=== PATIENT | female | born 1985 | race Caucasian/White ===

== ENCOUNTER → 2016-07-10 | Outpatient (CLI) | payer OTHER ==
[~2016-07-10] MED LIST: CHOL400T; CYAN500T PO; PRENTAB26 PO
[2016-07-10 14:53] LABS: URINE APPEARANCE CLEAR (CLEAR); URINE BILIRUBIN NEG (NEG); URINE COLOR YELLOW; URINE NITRITE NEG (NEG); URINE SPECIFIC GRAVITY 1.007 (1.000-1.030); UROBILINOGEN NEG (NEG)
[2016-07-10 15:07] LABS: MANUAL MICROSCOPIC REQUIRED? NO; REVIEW REQ? NO
== END | disposition home or self-care (01) ==
LOC: C.LABSPEC 14:09
PROVIDERS: ATTEND Obstetrics & Gynecology
DX: Z34.81 Encounter for supervision of other normal pregnancy, first trimester (principal)

== ENCOUNTER → 2016-07-17 | Outpatient (CLI) | payer OTHER ==
[2016-07-19 01:17] LABS: CHLAMYDIA TRACH RNA*** NOT DETECTED (NOT DETECTED); GC (NEIS GONORRHOEAE)RNA** NOT DETECTED (NOT DETECTED)
== END | disposition home or self-care (01) ==
LOC: C.LAB1850 09:40
PROVIDERS: ATTEND Obstetrics & Gynecology
DX: Z34.81 Encounter for supervision of other normal pregnancy, first trimester (principal)

== ENCOUNTER → 2016-07-17 | Outpatient (CLI) | payer OTHER | END | disposition home or self-care (01) | LOC: C.PAPS 13:46 | PROVIDERS: ATTEND Obstetrics & Gynecology | DX: Z12.4 Encounter for screening for malignant neoplasm of cervix (principal) ==

== ENCOUNTER → 2016-07-31 | Outpatient (CLI) | payer OTHER ==
[2016-07-31 12:45] LABS: BASO % 0.2 %; BASO ABS # 0.01 K/uL (0-0.2); COMPLETE YES; EOS % 2.3 %; HEMATOCRIT 37.9 % (37-47); LYMPH % 31.6 %; LYMPH ABS # 1.49 K/uL (1.2-3.4); MEAN CORPUSCULAR HEMOGLOBIN 31.3 pg (25-34); NEUT % 61.9 %; PLATELET COUNT 145 K/uL (130-400); RED BLOOD COUNT 4.12 M/uL (4.2-5.4); WHITE BLOOD COUNT 4.72 K/uL (4.8-10.8)
== END | disposition home or self-care (01) ==
LOC: C.LAB1850 10:55
PROVIDERS: ATTEND Obstetrics & Gynecology
DX: Z34.81 Encounter for supervision of other normal pregnancy, first trimester (principal)

== ENCOUNTER → 2016-09-04 | Outpatient (CLI) | payer OTHER ==
[2016-09-04 18:31] LABS: GTGD 50 Grams
== END | disposition home or self-care (01) ==
LOC: C.LAB1850 14:33
PROVIDERS: ATTEND Obstetrics & Gynecology
DX: Z34.82 Encounter for supervision of other normal pregnancy, second trimester (principal)

== ENCOUNTER → 2016-11-27 | Outpatient (CLI) | payer OTHER ==
[2016-11-27 16:40] LABS: HEMATOCRIT 35.7 % (37-47)
[2016-11-27 18:19] LABS: GTGD 50 Grams
[2016-11-27 18:23] LABS: URINE APPEARANCE CLEAR (CLEAR); URINE BILIRUBIN NEG (NEG); URINE COLOR YELLOW; URINE NITRITE NEG (NEG); UROBILINOGEN NEG (NEG)
[2016-11-27 18:25] LABS: MANUAL MICROSCOPIC REQUIRED? NO; REVIEW REQ? YES
== END | disposition home or self-care (01) ==
LOC: C.LAB1850 15:31
PROVIDERS: ATTEND Obstetrics & Gynecology
DX: Z34.82 Encounter for supervision of other normal pregnancy, second trimester (principal)

== ENCOUNTER → 2017-01-15 | Outpatient (CLI) | payer OTHER | END | disposition home or self-care (01) | LOC: C.LABSPEC 17:19 | PROVIDERS: ATTEND Obstetrics & Gynecology | DX: Z34.83 Encounter for supervision of other normal pregnancy, third trimester (principal) ==

== ENCOUNTER 2017-02-07 06:37 | Inpatient (IN) | payer OTHER ==
[~2017-02-07] VITALS: Ht 165.1 cm; Wt 78.6 kg
[2017-02-07] MEDS ORDERED: LACTATED RINGER'S 1000ML 1,000 ML IV SCH (07:13)
[2017-02-07] MEDS ORDERED: LACTATED RINGER'S 1000ML 1,000 ML IV PRN (07:13)
[2017-02-07] MEDS ORDERED: PENICILLIN G POTASSIUM IV 6 MU in DEXTROSE 5% 250ML 250 ML IV ONE (07:30)
[2017-02-07 07:46] LABS: HEMATOCRIT 33.9 % (37-47); MEAN CELL VOLUME 93.9 fL (80-100); MEAN CORPUSCULAR HEMOGLOBIN 34.3 pg (25-34); MEAN CORPUSCULAR HGB CONC 36.6 g/dl (32-36); MEAN PLATELET VOLUME 9.6 fL (7.4-10.4); PLATELET COUNT 117 K/uL (130-400); RED BLOOD COUNT 3.61 M/uL (4.2-5.4)
[2017-02-07 08:38] VITALS: Ht 165.1 cm; Wt 78.6 kg
[2017-02-07] MEDS ORDERED: LACTATED RINGER'S 1000ML 500 ML IV PRN ×2 (10:31→17:11)
[2017-02-07] MEDS ORDERED: OXYTOCIN 30 UNITS/500ML NSS IV PRN ×2 (10:45→18:15)
--- NOTE | 2017-02-07 11:28 | Medical Student: [facility] ---
Med Student History & Physical Date of Service Feb 07, 2017. Chief Complaint LABOR History of Present Illness Source: patient, spouse, clinic records, hospital records Renée Hopkins is a 31 year old Female 39-5 weeks GA, with an SARWAT of 02/09/2017 by LMP presenting for labor. She reports that her water broke around 0400 with clear fluid, and that was confirmed upon arrival to L&D. She reports that her has gone well and is without complications. She received RhoGAM at 28 weeks. She endorses contractions 3 minutes apart. She denies bleeding during the , denies leakage of fluid other than her water breaking. She endorses movement. Blood Type: A negative Rubella: Immune GBS: POSITIVE HBV: negative VDRL/RPR: nonreactive Chlamydia/Gonorrhea: negative 1 hr Glucose: 118 CBC (0733 on 02/07/2017): Hgb 12.4, Hct 33.9 OB History G1: Delivered a viable female 07/29/2015 at 41-3 weeks GA by normal vaginal delivery after induction for being post term. Small subchorionic bleed at 7 weeks. No other complications. HAND WASHER History Denies Hx of STI Menarche at 10 years old LMP 05/05/2016 Denies Hx of abnormal pap smear Past Medical History None Past Surgical History None Family History Mother: Breast Cancer at age 53 () Father: Brain Cancer Renée Hopkins has not received genetic testing Social History Smoking Status: Never Smoker Smokeless Tobacco Use: No Alcohol Use: none Drug Use: none Marital Status: Housing status: lives with significant other Occupational Status: employed Allergies Coded Allergies: No Known Allergies (Unverified , 07/28/15) Home Medications Multivit/Min/Iron/Fol Ac/Pren ( Vitamin), 1 TAB PO DAILY Review of Systems Constitutional: No fever, No chills Eyes: No worsening of vision, No problem reported ENT: No problem reported Respiratory: No cough, No wheezing, No shortness of breath Cardiovascular: No chest pain, No palpitations Abdomen: No pain, No nausea, No vomiting, No GI bleeding Genitourinary - Female: No dysuria, No hematuria Hematologic / Lymphatic: No abnormal bleeding/bruising Physical Exam Vital Signs: BP 105/63, T97.6, P78, R16 General Appearance: WD/WN ENT: hearing grossly normal Respiratory/Chest: lungs clear, normal breath sounds Cardiovascular: regular rate, rhythm, no murmur Abdomen / GI: non tender, soft, + pertinent finding (gravid uterus) Fundal Height: 39 Genitourinary - Female: + pertinent finding (Cer[facility] exam performed by Dr. Tobias on admission: dilation 3cm, effacement 50%, station (-2)) Extremities: no calf tenderness, no pedal edema Monitoring External Monitor: Baseline Heart Rate: 135 Moderate Variability Accelerations present Several rare variable decelerations Tocodynamometer: Contractions every 1.5-3 minutes Laboratory Results 02/07/17 07:33 Test 02/07/17 07:33 Red Blood Count 3.61 M/uL (4.2-5.4) Mean Corpuscular Volume 93.9 fL (80-100) Mean Corpuscular Hemoglobin 34.3 pg (25-34) Mean Corpuscular Hemoglobin Concent 36.6 g/dl (32-36) RDW Standard Deviation 45.2 fL (36.4-46.3) RDW Coefficient of Variation 13.2 % (11.5-14.5) Mean Platelet Volume 9.6 fL (7.4-10.4) Assessment and Plan Assessment: Renée Hopkins is a 31 year old Female 39-5 weeks GA, with an SARWAT of 02/09/2017 by LMP presenting for labor. Predelivery Hgb and Hct are 12.4 and 33.9 respectively. EFM reveals periods of Category I tracings with periods of reassuring Category II tracings. GBS: positive Plan: Monitor mother and fetus with toco and EFM, respectively Only Ice chips and clear liquids PO Pitocin available for augmentation if needed or indicated Administer IV Penicillin G Epidural when indicated Expect
[2017-02-07] MEDS: PENICILLIN G POTASSIUM IV 3 MU in DEXTROSE 5% 100ML 100 ML IV PRN ×2 (11:55→16:15)
[2017-02-07] MEDS ORDERED: BUPIVACAINE 0.25% 30 ML VIAL ONE (15:44)
[2017-02-07] MEDS ORDERED: FENTANYL 2MCG/ML ROPIV 1.25MG/ML 100ML BAG EPI ONE (15:45)
[2017-02-07] MEDS ORDERED: EpHEDrine SULFATE INJ 50 MG/ML AMP ONE (15:45)
[2017-02-07] MEDS ORDERED: FENTANYL CITRATE INJ 50 MCG/1 ML 2 ML VIAL ONE (15:45)
[2017-02-07] MEDS ORDERED: NALOXONE HCL INJ 1 MG in SODIUM CHLORIDE 0.9% 1000ML 1,000 ML IV PRN (17:11)
[2017-02-07] MEDS ORDERED: NALOXONE HCL INJ 0.4 MG/1 ML VIAL/CARP IV PRN (17:15)
[2017-02-07] MEDS ORDERED: ONDANSETRON INJ 2 MG/ML 2 ML VIAL IV PRN (17:15)
[2017-02-07] MEDS ORDERED: EpHEDrine SULFATE INJ 50 MG/ML AMP IV PRN (17:15)
[2017-02-07] MEDS ORDERED: NALBUPHINE HCL INJ 10 MG/ML AMP IV PRN (17:15)
[2017-02-07] MEDS ORDERED: FENTANYL 2MCG/ML ROPIV 1.25MG/ML 100ML BAG EPI PRN (17:15)
[2017-02-07] MEDS ORDERED: DiphenhydrAMINE HCL 50 MG/ML VIAL IV PRN (17:15)
[2017-02-07] MEDS ORDERED: SUPERCREAM 0.870 % 15GM JAR EXT PRN (18:15)
[2017-02-07] MEDS ORDERED: LANOLIN OINT EXT PRN ×2 (18:15)
[2017-02-07] MEDS ORDERED: DIPHTHERIA/TETANUS/PERTUSSIS 0.5 ML SYR/VIAL IM. ONE (18:15)
[2017-02-07] MEDS ORDERED: ACETAMINOPHEN/CODEINE 300/30MG TAB PO PRN ×2 (18:15)
[2017-02-07] MEDS ORDERED: ACETAMINOPHEN 325 MG TAB PO PRN (18:15)
[2017-02-07] MEDS ORDERED: HYDROCORTISONE ACETATE 25 MG SUPP PR PRN (18:15)
[2017-02-07] MEDS ORDERED: OXYCODONE/ACETAMINOPHEN 5-325 TAB PO PRN (18:15)
[2017-02-07] MEDS ORDERED: BENZOCAINE 20% AER SPR 82.5 GM CAN EXT PRN (18:15)
--- NOTE | 2017-02-07 19:45 | DELIVERY SUMMARY ---
DATE OF OPERATION: 02/07/2017 VAGINAL DELIVERY NOTE Renée arrived initially on February 07, for Dr. Tobias with ruptured membranes at term. Uncomplicated , 39 weeks and 5 days. Group B Strep positive and second baby, one prior vaginal delivery. Course in labor did require Pitocin augmentation as her concentrations were not adequate. She eventually received an epidural and then delivered a live vigorous female infant. Baby was delivered in right occiput anterior position. There was a tight nuchal cord which was clamped and cut after delivery of the head. Mouth and nares were suctioned. Gentle traction was used. No excessive force. Baby initially required some stimulation but was vigorous soon after. Cord gases sent. Cord blood sent. Placenta removed with gentle traction. Second-degree tear repaired with 3-0 Vicryl. Sponge and instrument counts correct. Estimated blood loss 150 mL. I attest to the content of the Intraoperative Record and any orders documented therein. Any exception s are noted below.
[2017-02-07] MEDS: IBUPROFEN 600 MG TAB PO PRN (21:45)
[2017-02-07] MEDS: DOCUSATE SODIUM 100 MG CAP PO SCH (21:45)
--- NOTE | 2017-02-07 21:58 | Anesthesia Procedure Note ---
Anesthesia Epidural Removal Nt Date & Time Feb 07, 2017 at 21:55 Vital Signs Pain Intensity: 2.0 Notes Mental Status: alert / awake / arousable, participated in evaluation Nausea / Vomiting: adequately controlled Pain: adequately controlled Airway Patency, RR, SpO2: stable & adequate BP & HR: stable & adequate Hydration State: stable & adequate Neuraxial Anesthesia: was administered, sensory block is resolving Anesthetic Complications: no major complications apparent, pt satisfied with anesthetic care Epidural: removed without complications, with tip intact
[2017-02-07 22:00] VITALS: BP 102/56; PULSE 68; TEMP 36.4
[2017-02-08] VITALS (7 sets, daily range): BP systolic 98–117; BP diastolic 52–64; PULSE 62–82; TEMP 36.4–36.9; O2SAT 98
[2017-02-08] MEDS: IBUPROFEN 600 MG TAB PO PRN ×4 (04:24→17:18)
[2017-02-08 06:10] LABS: HEMATOCRIT 35.7 % (37-47)
--- NOTE | 2017-02-08 06:40 | Medical Student: [facility] ---
Med Student SAMPLE CARD MAKER Progress Nt Date of Service Feb 08, 2017. Subjective conversation w/ patient, physical exam, chart review, lab review, review of studies, review of inpatient medication list Ambulation: ambulating normally Voiding: no voiding problems Passing Gas: Yes Diet Tolerance: Regular Diet Lochia: Small Feeding Type: Breast Feeding Pain: 2/10 Notes: pelvic and perineal pain rated 2/10 Review of Systems Constitutional: No fever, No chills Respiratory: No cough, No shortness of breath Cardiac: No chest pain, No palpitations Abdomen: No pain, No nausea, No vomiting Female : No dysuria Objective Vital Signs Date Time Temp Pulse Resp B/P (MAP) Pulse Ox O2 Delivery O2 Flow Rate FiO2 02/08/17 04:05 36.4 62 16 100/60 (73) Room Air 02/08/17 00:05 Room Air 02/08/17 00:05 36.6 64 18 100/56 (71) Room Air 02/07/17 22:00 Room Air 02/07/17 22:00 36.4 68 18 102/56 (71) Room Air Physical Exam General Appearance: WELL-APPEARING, WD/WN Respiratory/Chest: lungs clear, normal breath sounds Cardiovascular: regular rate, rhythm, no murmur Abdomen: non tender, soft Fundus: Firm, Non-Tender, Relation to Umbilicus (2 finger breadths below umbilicus) Extremities: non-tender, no pedal edema, no calf tenderness Blood Type: A negative Rubella: Immune GBS: positive Predelivery: Hgb 12.4 Hct 33.9 Postdelivery: Hgb 12.6 Hct 35.7 Laboratory Results Last 24 Hours Test 02/07/17 07:33 02/08/17 05:27 White Blood Count 6.10 K/uL Red Blood Count 3.61 M/uL Hemoglobin 12.4 g/dL 12.6 g/dL Hematocrit 33.9 % 35.7 % Mean Corpuscular Volume 93.9 fL Mean Corpuscular Hemoglobin 34.3 pg Mean Corpuscular Hemoglobin Concent 36.6 g/dl RDW Standard Deviation 45.2 fL RDW Coefficient of Variation 13.2 % Platelet Count 117 K/uL Mean Platelet Volume 9.6 fL Medications Current Inpatient Medications Medications (Trade) Dose Ordered Sig/Yara Route Start Time Stop Time Status Last Admin Dose Admin Lactated Ringer's 1,000 ml @ 125 mls/hr Q8H IV 02/07/17 07:13 02/09/17 07:12 02/07/17 07:57 125 MLS/HR Lactated Ringer's 500 ml @ 999 mls/hr Q31M PRN IV 02/07/17 10:31 03/09/17 10:30 Oxytocin (Pitocin IV) 30 units UD PRN IV 02/07/17 18:15 03/09/17 18:14 Benzocaine (Dermoplast Aero Spr) 1 appln PRN PRN EXT 02/07/17 18:15 03/09/17 18:14 Cocaine HCl (Supercream 0.870% Cr) BID PRN EXT 02/07/17 18:15 02/21/17 18:14 Hydrocortisone Acetate (Anusol Hc Supp) 25 mg BID PRN NJ 02/07/17 18:15 03/09/17 18:14 Lanolin (Lanolin Oint) PRN PRN EXT 02/07/17 18:15 03/09/17 18:14 Prenat Multivit/ Rn Behavioral Health/Iron/Folic Ac ( Vitamin Tab) 1 tab DAILY PO 02/08/17 08:00 03/10/17 07:59 Ibuprofen (Motrin Tab) 600 mg Q4H PRN PO 02/07/17 18:15 03/09/17 18:14 02/08/17 04:24 600 MG Acetaminophen (Tylenol Tab) 650 mg Q6H PRN PO 02/07/17 18:15 03/09/17 18:14 Acetaminophen/ Codeine Phosphate (Tylenol w/ Codeine #3 Tab) 1 tab Q4H PRN PO 02/07/17 18:15 03/09/17 18:14 Acetaminophen/ Codeine Phosphate (Tylenol w/ Codeine #3 Tab) 2 tab Q4H PRN PO 02/07/17 18:15 03/09/17 18:14 Bisacodyl (Dulcolax Tab) 5 mg 20 PO 02/08/17 20:00 02/08/17 20:01 Bisacodyl (Dulcolax Supp) 10 mg DAILY PRN NJ 02/09/17 07:00 Docusate Sodium (coLACE CAP) 100 mg BID PO 02/07/17 20:00 03/09/17 19:59 Assessment and Plan Post- Day Number: 1 Continue Routine Care: Assessment: Renée Hopkins is a 31 year old Female presenting PPD #1 following SROM and normal vaginal delivery augmented with Pitocin. Predelivery Hgb 12.4 and Hct 33.9, Postdelivery Hgb 12.6 and Hct 35.7 GBS Positive: Has been treated with IV Penicillin G She is ambulating well and appears stable. Plan: Routine care Monitor Bleeding Pain Controlled with Motrin Educate patient on sitz bath for repaired 2nd degree perineal laceration. Encourage ambulation and Resident Physician Supervision Note: I was present with Dr. Quinteros during the history and exam. I discussed the case with the resident and agree with the findings and plan as documented in the note. Any exceptions or clarifications are listed here: [None] Documented By: Ej Peña
--- NOTE | 2017-02-08 06:45 | OB/GYN Progress Note ---
COSTUME DIRECTOR Progress Note Date of Service Feb 08, 2017. Subjective conversation w/ patient, physical exam, chart review, lab review Ambulation: ambulating normally Voiding: no voiding problems Diet Tolerance: Regular Diet Lochia: Moderate Feeding Type: Breast Feeding Pain: 2/10 pain Review of Systems Constitutional: No fever, No chills Respiratory: No shortness of breath Cardiac: No chest pain Abdomen: No nausea, No vomiting Female : No dysuria Objective Vital Signs Date Time Temp Pulse Resp B/P (MAP) Pulse Ox O2 Delivery O2 Flow Rate FiO2 02/08/17 04:05 36.4 62 16 100/60 (73) Room Air 02/08/17 00:05 Room Air 02/08/17 00:05 36.6 64 18 100/56 (71) Room Air 02/07/17 22:00 Room Air 02/07/17 22:00 36.4 68 18 102/56 (71) Room Air Physical Exam General Appearance: WELL-APPEARING Respiratory/Chest: lungs clear, normal breath sounds Cardiovascular: regular rate, rhythm Abdomen: normal bowel sounds, non tender, soft Fundus: Firm, Relation to Umbilicus (2 Fb below) Extremities: non-tender, no pedal edema Laboratory Results Last 24 Hours Test 02/07/17 07:33 02/08/17 05:27 White Blood Count 6.10 K/uL Red Blood Count 3.61 M/uL Hemoglobin 12.4 g/dL 12.6 g/dL Hematocrit 33.9 % 35.7 % Mean Corpuscular Volume 93.9 fL Mean Corpuscular Hemoglobin 34.3 pg Mean Corpuscular Hemoglobin Concent 36.6 g/dl RDW Standard Deviation 45.2 fL RDW Coefficient of Variation 13.2 % Platelet Count 117 K/uL Mean Platelet Volume 9.6 fL Assessment and Plan Post- Day Number: 1 Continue Routine Care: A/P: This is a 31 y/o female, , s/p [normal vaginal delivery] day 1. She is ambulating and clinically stable. Plan: - Vitals signs are reviewed and WNL (Tmax 36.6 ) - Last Hgb is 12.6 - Blood type A-, GBS pos, Rubella Immune - Routine care - Encourage ambulation, monitor and control pain with medication as needed, continue with regular diet as tolerated and monitor lochia - Stool softeners and sitz bath recommended - Encourage breast feeding and educate about breast feeding Resident Physician Supervision Note: I was present with Dr. Quinteros during the history and exam. I discussed the case with the resident and agree with the findings and plan as documented in the note. Any exceptions or clarifications are listed here: [None] Documented By: Ej Peña Resident Involvement: Resident Care Provided Care Provided: OB Delivery
[2017-02-08] MEDS: DOCUSATE SODIUM 100 MG CAP PO SCH ×2 (08:21→19:57)
[2017-02-08] MEDS: PRENATAL VITAMIN TAB PO SCH (08:24)
[2017-02-08] MEDS ORDERED: BISACODYL 5 MG TABEC PO SCH (20:00)
[2017-02-09] MEDS: IBUPROFEN 600 MG TAB PO PRN ×2 (02:09→08:32)
--- NOTE | 2017-02-09 06:10 | OB/GYN Progress Note ---
RELAY SHOP TESTER Progress Note Date of Service Feb 09, 2017. Subjective conversation w/ patient, physical exam, chart review, lab review Ambulation: ambulating normally Voiding: no voiding problems Passing Gas: Yes Diet Tolerance: Regular Diet Lochia: Small Feeding Type: Breast Feeding Pain: mild pain Review of Systems Constitutional: No fever, No chills Respiratory: No shortness of breath Cardiac: No chest pain Abdomen: No nausea, No vomiting Female : No dysuria Objective Vital Signs Date Time Temp Pulse Resp B/P (MAP) Pulse Ox O2 Delivery O2 Flow Rate FiO2 02/08/17 23:55 36.6 75 18 106/64 (78) 98 Room Air 02/08/17 23:55 98 Room Air 02/08/17 19:30 36.9 79 20 108/62 (77) Room Air 02/08/17 15:30 Room Air 02/08/17 15:30 36.7 66 20 98/52 (67) Room Air 02/08/17 12:48 Room Air 02/08/17 12:44 36.5 80 16 117/62 (80) Room Air 02/08/17 08:45 36.4 82 16 114/64 (81) Room Air 02/08/17 08:45 Room Air Physical Exam General Appearance: WELL-APPEARING Respiratory/Chest: lungs clear, normal breath sounds Cardiovascular: regular rate, rhythm Abdomen: normal bowel sounds, non tender, soft Fundus: Firm, Relation to Umbilicus (2 FB below) Extremities: non-tender, no pedal edema Laboratory Results Last 24 Hours Test 02/09/17 04:44 Assessment and Plan Post- Day Number: 2 Continue Routine Care: A/P: This is a 31 y/o female, , s/p [normal vaginal delivery] day 2. She is ambulating and clinically stable. Plan: - Vitals signs are reviewed and WNL (Tmax 36.9 ) - Last Hgb is 12.6. This AM pending - Blood type A-, GBS pos, Rubella Immune - Baby blood type O- - No signs of depression. - Routine care - Discussed resting, feeding, pain control, mastitis, control, follow up in 6 weeks and reasons to call sooner, if necessary. - Continue with pain medication as needed, and continue vitamins. - Encourage breast feeding and educate about breast feeding - Patient understands and keen for home. - Plan to discharge home Resident Physician Supervision Note: I was present with Dr. Quinteros during the history and exam. I discussed the case with the resident and agree with the findings and plan as documented in the note. Any exceptions or clarifications are listed here: PPD#2, doing well. Plan to discharge to home today. Instructions discussed, Followup in office 6w. Documented By: Nani Johnson Resident Involvement: Resident Care Provided Care Provided: OB Delivery
--- NOTE | 2017-02-09 06:13 | Discharge Instructions ---
Discharge Instructions Date of Service Feb 09, 2017. Admission Reason for Admission: LABOR Discharge Discharge Diagnosis / Problem: after vaginal delivery Discharge Goals Goal(s): Routine recovery after delivery Medications Continue Dispensed Medications: supercream, dermaplast, tucks, lansinoh Activity Recommendations Activity Limitations: per Instructions/Follow-up section . Instructions / Follow-Up Instructions / Follow-Up ACTIVITY RECOMMENDATIONS: * Gradual return to full activity over the next 2-3 weeks. * No lifting - nothing heavier than baby over the next 2-3 weeks. * Do not engage in vigorous exercise, sexual activity or sports until cleared by your physician. * Do not drive or operate any motorized equipment until cleared by your physician. * You may shower/bathe daily. MEDICATIONS: For discomfort or pain, you may use Acetaminophen (Tylenol), Ibuprofen (Advil), or Naproxen (Aleve) following the package directions. For constipation you may use Colace following the package directions. BREAST CARE: If you are not breast feeding: * Wear a supportive bra 24 hours a day for one to two weeks. * Avoid stimulating your breasts and nipples as much as possible during the first few weeks after delivery. * When taking a shower, have the warm water hit your back, not breasts. * When your breasts feel full, apply ice packs. Usually three to four times a day helps ease the discomfort. * Take a mild pain medication (Tylenol / Motrin) when you are uncomfortable. If breast feeding: * Use breast milk to lubricate nipples. Lansinoh cream may be used for sore nipples. You do not need to remove cream prior to breast feeding. If using a different brand of cream, check the label for directions regarding removal of cream prior to nursing. * Wear a supportive bra. * If having problems with breasts or breast feeding, call a cardiology clinical consultant or your health care provider. EPISIOTOMY CARE: After delivery, if you have an episiotomy (stitches), the following steps will ease discomfort and aid healing. * For the first 24 hours after delivery, place ice packs next to your episiotomy to help reduce swelling. * After the first 24 hour-period, sitz baths, either portable or in the tub, are suggested. A shower with a shower arm sprayed over the episiotomy may be comforting. * Roshni care should be done after each voiding and bowel movement. Squirt warm water from a plastic bottle over the perineum (region of the body between the anus and urinary opening) and pat dry. * Use Dermoplast to ease discomfort. Shake container. [place] directly over the episiotomy. Place a Tucks on a clean sanitary pad next to your episiotomy. SPECIAL CARE INSTRUCTIONS: When you are discharged from the hospital, it is important for you to follow the instructions listed below: * During the first week at home, you should be able to care for yourself and your baby. In addition, the usual light household activities are encouraged. * Limit your activities to the way you feel. Do not try to clean the house or move furniture. Be sensible. * If you actively engage in sports and have done so up until the time of your delivery, you may resume these activities as soon as you feel able. This may take up to one month or even longer. Use good judgment. * Continue to take your vitamins for at least six weeks after the of your baby. * Your diet need not be limited unless you were on a special diet before your delivery. Breast-feeding mothers need around 2500 calories per day and at least 64-80 ounces of fluid per day (8 to 10 glasses). * You should eat foods from the four major food groups. Crash diets or fad diets are to be avoided. Eating lean meats, fresh fruits and vegetables, low-fat dairy products, high fiber foods and a regular exercise program, will help you get back to your pre- weight without putting your health at risk. * Constipation is sometimes a problem after delivery. Take a mild laxative as needed. If breast feeding, Milk of Magnesia is acceptable to use. You may use a suppository or Fleets enema if no episiotomy. * A daily shower or tub bath is suggested. Be sure to thoroughly and gently dry the perineum. * A bloody vaginal discharge will usually continue until around four weeks post . A small amount of bleeding may continue for as long as six weeks. Vaginal discharge changes from the bright red bleeding after delivery to pink then brownish and finally yellowish-pink before becoming white and disappearing. * Bleeding may increase with activity. Your first period may come in 4-8 weeks. If you are breast feeding, your period may be delayed even longer. * Gaylord (sex) can begin whenever both you and your partner feel comfortable and do not have any form of genital infection. It is recommended that you wait at least six weeks for internal and external healing to occur. If you have questions, please talk to your health care practitioner. A condom should be used to prevent infection and . * Foreplay, gentle intercourse and lubrication is very important the first several times to prevent pain. A water-based lubricant such as K-Y jelly or Astroglide may be used. * If you have RH negative blood and your baby is RH positive, you will receive RHOGAM by injection prior to discharge. The nurse will give you a card to keep with you that has the date and place that you received RHOGAM after delivery. * During your care, you had a Rubella screen done to check for the presence of rubella antibodies in your blood. If your test was negative, you will receive a Rubella vaccine prior to discharge. This vaccine may cause a fever, soreness at the injection site and flu-like symptoms. If these symptoms persist, notify your health care practitioner. is not advised for one month after a Rubella vaccine. * Verbalizes understanding of car seat law as reviewed with patient nursing. * Car Seat hand-out given and reviewed with patient by nursing. * Shaken baby information reviewed with patient by nursing. Call you doctor if: * Heavy bleeding (saturating several pads an hour) or passing clots the size of your fist. * A fever >101 degrees F (38.3 degrees C) on two occasions four hours apart and /or chills. * Unusual pain in the pelvic or vaginal areas. * "Baby Blues" lasting longer than two weeks. If you have any questions or concerns, call your health care practitioner at . FOLLOW UP VISIT: * Please call the office at to schedule a 6 week examination. It is important you keep this appointment. It is important for you to make arrangements for either yearly or twice yearly check-ups thereafter. Current Hospital Diet Patient's current hospital diet: Regular OB Diet, Vegetarian Diet Discharge Diet Recommended Diet: Regular Diet Pending Studies Studies pending at discharge: no Medical Emergencies . Who to Call and When: Medical Emergencies: If at any time you feel your situation is an emergency, please call 911 immediately. . Non-Emergent Contact Non-Emergency issues call your: Cooling Tower Operator . . "Provider Documentation" section prepared by Haylee Quinteros. . VTE Core Measure Inpt VTE Proph given/why not?: SCD's
[2017-02-09] MEDS ORDERED: BISACODYL 10 MG SUPP PR PRN (07:00)
[2017-02-09 07:09] LABS: HEMATOCRIT 34.2 % (37-47); MEAN CELL VOLUME 95.5 fL (80-100); MEAN CORPUSCULAR HEMOGLOBIN 33.2 pg (25-34); MEAN CORPUSCULAR HGB CONC 34.8 g/dl (32-36); MEAN PLATELET VOLUME 9.8 fL (7.4-10.4); PLATELET COUNT 124 K/uL (130-400); RED BLOOD COUNT 3.58 M/uL (4.2-5.4); WHITE BLOOD COUNT 7.41 K/uL (4.8-10.8)
[2017-02-09] MEDS: PRENATAL VITAMIN TAB PO SCH (08:30)
[2017-02-09] MEDS: DOCUSATE SODIUM 100 MG CAP PO SCH (08:30)
[2017-02-09 08:35] VITALS: BP 118/62; PULSE 66; TEMP 36.4
[2017-02-09 12:51] VITALS: BP_DIAS 62; PULSE 66; TEMP 36.4
== END 2017-02-09 13:18 | disposition home or self-care (01) | DRG 775 ==
LOC: C.LD 06:37 → C.OPB 06:37 → C.LD 07:17 → C.OPB 07:17 → C.OBG 21:20
PROVIDERS: ADMIT Obstetrics & Gynecology; ATTEND Obstetrics & Gynecology
PROC: 0KQM0ZZ Repair Perineum Muscle, Open Approach (ICD-10-PCS; principal; 2017-02-07)
PROC: 10E0XZZ Delivery of Products of Conception, External Approach (ICD-10-PCS; principal; 2017-02-07)
DX: O99.824 Streptococcus B carrier state complicating childbirth (principal); O69.1XX0 Labor and delivery complicated by cord around neck, with compression, not applicable or unspecified; O70.1 Second degree perineal laceration during delivery; Z3A.39 39 weeks gestation of pregnancy; Z37.0 Single live birth

== ENCOUNTER 2017-05-01 13:00 | Emergency (ER) | payer BC, OTHER ==
[~2017-05-01] VITALS: Ht 165.1 cm; Wt 71.0 kg
[~2017-05-01 13:00] MED LIST changes: -CHOL400T; -CYAN500T PO
[2017-05-01 13:05] VITALS: TEMP 36.4; Ht 165.1 cm; Wt 71.0 kg
--- NOTE | 2017-05-01 13:43 | EMERGENCY ROOM VISIT NOTE ---
ED Visit Note First contact with patient: 13:15 I have seen and examined this patient with Ej Carcamo and generally agree with the treatment plan as discussed.
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
[2017-05-01 15:02] VITALS: BP 99/54; PULSE 62; O2SAT 99
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
== END 2017-05-01 15:04 | disposition home or self-care (01) ==
LOC: C.EDB 13:00 → C.EDD 15:04
DX: M54.2 Cervicalgia (principal); V47.5XXA Car driver injured in collision with fixed or stationary object in traffic accident, initial encounter; V49.40XA Driver injured in collision with unspecified motor vehicles in traffic accident, initial encounter; Y93.89 Activity, other specified; Y99.8 Other external cause status; Z98.890 Other specified postprocedural states

== ENCOUNTER 2019-01-21 18:17 | Inpatient (IN) ==
[2019-01-21] MEDS ORDERED: OXYTOCIN 30 UNITS/500 ML BAG IV PRN (18:34)
[2019-01-21] MEDS: LACTATED RINGER'S 1,000 ML IV PRN ×2 (18:45→20:57)
[2019-01-21] MEDS ORDERED: CEFAZOLIN 2000MG 2,000 MG/15 ML SYR IV ONE (19:00)
[2019-01-21 19:16] LABS: Hematocrit (blood only) 37.1 % (37-47); Hemoglobin 13.3 g/dL (12.0-16.0); Mean Corpuscular Volume 94.9 fL (80-100); Mean Platelet Volume 9.8 fL (7.4-10.4); Platelet Count 135 K/uL (130-400); RDW Coefficient of Variation 12.7 % (11.5-14.5); RDW Standard Deviation 43.4 fL (36.4-46.3); Red Blood Count 3.91 M/uL (4.2-5.4); White Blood Count 8.18 K/uL (4.8-10.8)
[2019-01-21] MEDS ORDERED: BUPIVACAINE 0.25% 30 ML VIAL ONE (19:33)
[2019-01-21] MEDS ORDERED: fentaNYL 2MCG/ML ROPIV 1.25MG/ML 100 ML BAG EPI ONE (19:33)
[2019-01-21] MEDS ORDERED: ePHEDrine sulfate 50 MG/ML AMP ONE (19:33)
[2019-01-21] MEDS ORDERED: fentaNYL citrate 100 MCG/2 ML VIAL ONE (19:33)
[2019-01-21 19:42] LABS: Mean Corpuscular Hgb Conc 35.8 g/dL (32-36)
--- NOTE | 2019-01-21 19:46 | Anesthesiology Consultation ---
Date of Service January 21, 2019 Assessment & Plan Chart Review Chart Review: Acceptable Risk for Surgery, Patient NOT seen in Pre Admission Testing and Acceptable Risk for Labor Epidural Consults Requested none ASA ASA2 Proposed Anesthesia Anesthesia Type: General and Labor Epidural History Height/Weight Height: 5 ft 5 in Weight: 78.925 kg Allergies Allergy/AdvReac Type Severity Reaction Status Date / Time Penicillins Allergy Unknown Verified 01/14/19 15:34 Medications Home Medications Medication Instructions Recorded Confirmed Last Taken ferrous sulfate PO 11/18/18 01/14/19 Unknown [id number] oil PO 12/16/18 01/14/19 Unknown Active Medications Generic Name Dose Route Start Last Admin Trade Name Freq PRN Reason Stop Dose Admin Lactated Ringer's 1,000 mls @ 125 mls/hr 01/21/19 18:34 01/21/19 19:12 Lr IV 01/23/19 18:33 125 mls/hr .Q8H PRN Infusion L&D Protocol Protocol Past Medical History Medical History History of prolonged History of varicella Exercise / Class Metabolic Activity II 4-5 Yardwork/Stairs/Walk up hill Past Family History Family History Father Bleeding ulcer Aortic valve disorder Cardiac pacemaker Malignant neoplasm of brain Mother Breast cancer Past Surgical History Surgical History S/P wisdom tooth extraction Past Anesthesia History No Hx of Anesthesia Complications and No Family Hx of Anesthesia Complications History of PONV No Hx of PONV and No Hx of Motion Sickness Social History Smoking Status: Never smoker Hx Alcohol Use: No Hx Substance Use: No Testing Laboratory Results 01/21/19 18:59
--- NOTE | 2019-01-21 20:17 | History & Physical Report ---
Date of Service January 21, 2019 Assessment & Plan (1) : Spontaneous labor. Admit to L&D. OK for epidural. Labs, EFM/toco. IV fluids. History of Present Illness Chief Complaint: labor Primary Care Provider: NO PCP 33yo @ 39 07/20 presents with regular ctx. SROM for clear fluid at about 6:45pm tonight. + movement. No vaginal bleeding. complicated by GBS + and Rh negative. Allergies Allergy/AdvReac Type Severity Reaction Status Date / Time Penicillins Allergy Unknown Verified 01/14/19 15:34 Home Medications Home Medications Medication Instructions Recorded Confirmed Type ferrous sulfate PO 11/18/18 01/14/19 History [id number] oil PO 12/16/18 01/14/19 History Patient History Medical History History of prolonged History of varicella Surgical History S/P wisdom tooth extraction Family History Father Bleeding ulcer Aortic valve disorder Cardiac pacemaker Malignant neoplasm of brain Mother Breast cancer Social History Preferred Language: Hungarian Radio Script Writer Required: No Beliefs That Will Affect Care: None marital status: Current Living Situation: Family Other Information That Helps Us Care for You: No Feels Safe at Home: Yes Safety Concerns: Feels Safe At This Time Smoking Status: Never smoker Hx Alcohol Use: No Hx Substance Use: No Review of Systems All systems reviewed & are unremarkable except as noted in HPI & below Physical Exam Constitutional: WD/WN, vitals as above Respiratory: normal respiratory effort, lungs clear to auscultation no respiratory distress Cardiovascular: Rate/Rhythm: regular rate and regular rhythm Gastrointestinal (Abdomen): Inspection/Auscultation: abdomen normal to inspection Percussion/Palpation: abdomen soft; abdomen nontender Gravid. No s/s chorio or abruption. Skin: no rashes, warm and dry Psychiatric: A+Ox3, euthymic affect Results & Data Vital Signs (Past 12 Hours) Vital Signs Pulse BP Pulse Ox 01/21/19 20:12 66 124/59 L 01/21/19 20:10 67 99 01/21/19 20:05 66 100 01/21/19 20:00 66 100 01/21/19 19:55 69 98 Monitoring External Monitor FHT Cat 1 [place] Q 3
[2019-01-21] MEDS ORDERED: PROMETHAZINE HCL 25 MG in SODIUM CHLORIDE 0.9% 50 ML IV PRN (20:25)
[2019-01-21] MEDS ORDERED: DiphenhydrAMINE HCL 50 MG/ML VIAL IV PRN (20:25)
[2019-01-21] MEDS ORDERED: ePHEDrine sulfate 50 MG/ML AMP IV PRN (20:25)
[2019-01-21] MEDS ORDERED: NALOXONE HCL 0.4 MG/1 ML VIAL/CARP IV PRN (20:25)
[2019-01-21] MEDS ORDERED: NALBUPHINE HCL INJ 10 MG/ML AMP IV PRN (20:25)
[2019-01-21] MEDS ORDERED: NALOXONE HCL 1 MG in SODIUM CHLORIDE 0.9% 1000ML 1,000 ML IV PRN (20:25)
[2019-01-21] MEDS ORDERED: ONDANSETRON INJ 2 MG/ML 2 ML VIAL IV PRN (20:25)
[2019-01-21] MEDS ORDERED: fentaNYL 2MCG/ML ROPIV 1.25MG/ML 100 ML BAG EPI PRN (20:25)
--- NOTE | 2019-01-22 00:55 | Delivery Summary ---
Vaginal Delivery Summary Date of Service January 22, 2019 Vaginal Delivery Summary Vaginal Delivery Summary: Pre-delivery diagnoses: 33yo @ 39 5/7, spontaneous labor, GBS+ Post-delivery diagnoses: same Procedure: spontaneous vaginal delivery, repair of 1st degree perineal laceration Surgeon: Nani Johnson DO Complications: none Findings: Viable female . Apgars: 8/9 . Weight pending, please see nursery records Estimated blood loss: 300 Description of delivery: The patient progressed to complete with epidural anesthesia. AROM for clear fluid, she then began to push. She spontaneously vaginally delivered a viable from the cephalic presentation. The head delivered in DARRIUS position. The anterior shoulder delivered, followed by the posterior shoulder, followed by the body. No nuchal cord. The baby was placed on mother's abdomen and a spontaneous cry was heard. Delayed cord clamping was employed, and the cord was doubly clamped and cut. Cord blood was obtained. Cord blood collected for donation per patient request. The placenta was delivered spontaneously intact with a 3-vessel cord. The uterus and vagina were swept of clots and debris. IV pitocin was given. The uterus became firm. The cervix, vagina, and perineum were inspected and a first degree perineal laceration was noted and repaired in standard fashion. Excellent hemostasis was observed. The mother and baby are recovering in stable and good condition in the room. Sponge, needle and instrument counts were correct x 2. Nani Johnson DO [facility] [place]
[2019-01-22] MEDS ORDERED: bisacodyL 10 MG SUPP PR PRN (01:03)
[2019-01-22] MEDS ORDERED: SUPERCREAM 0.870% 15 GM JAR EXT PRN (01:03)
[2019-01-22] MEDS ORDERED: OXYCODONE/ACETAMINOPHEN 5mg/325mg TAB PO PRN (01:03)
[2019-01-22] MEDS ORDERED: DIPHTHERIA/TETANUS/PERTUSSIS 0.5 ML SYR/VIAL IM ONE (01:03)
[2019-01-22] MEDS ORDERED: OXYTOCIN 30 UNITS/500 ML BAG IV PRN (01:03)
[2019-01-22] MEDS ORDERED: IBUPROFEN 600 MG TAB PO PRN (01:03)
[2019-01-22] MEDS ORDERED: HYDROCORTISONE ACETATE 25 MG SUPP PR PRN (01:03)
[2019-01-22] MEDS ORDERED: BENZOCAINE 20% AER SPR 82.5 GM CAN EXT PRN (01:03)
[2019-01-22] MEDS: ACETAMINOPHEN 325 MG TAB PO PRN ×3 (04:18→20:19)
--- NOTE | 2019-01-22 07:17 | Anesthesia Procedure Note ---
Date of Service January 22, 2019 Anesthesia Post Epidural Note Vital Signs Vital Signs: Temp Pulse Resp BP Pulse Ox 97.9 F 73 18 102/65 97 01/22/19 03:10 01/22/19 03:10 01/22/19 03:10 01/22/19 03:10 01/22/19 00:25 Notes Mental Status: alert / awake / arousable and participated in evaluation Nausea / Vomiting: adequately controlled Pain: adequately controlled Airway Patency, RR, SpO2: stable & adequate BP & HR: stable & adequate Hydration State: stable & adequate Neuraxial Anesthesia: was administered and sensory block is resolving Anesthetic Complications: no major complications apparent and Pt Satisfied with anesthetic care Epidural: Removed without complications and With tip intact
[2019-01-22] MEDS: PRENATAL VITAMIN 1 TAB PO SCH (08:11)
[2019-01-22] MEDS: DOCUSATE SODIUM 100 MG CAP PO SCH ×2 (08:11→20:19)
[2019-01-22] MEDS ORDERED: FAMOTIDINE 20 MG TAB PO ONE (20:30)
--- NOTE | 2019-01-23 06:33 | Obstetrical Progress Note ---
Date of Service January 23, 2019 Assessment & Plan (1) : 33 yo s/p VD @ 39w5d -PPD# 1 - GBS +, Blood Type A- - Feels well today. Eating well, voiding well, ambulating well. - Pain well controlled. - Routine post care - After discharge will have [address] Johnson. Supervising Physician Co-Signing Physician Notes Resident Physician Supervision Note: I interviewed and examined the patient. Discussed with Dr. Vargas and agree with findings and plan as documented in the note. Any exceptions or clarifications are listed here: Doing well. PLan d/c. Instructions reviewed. Documented By: Naa Tobias MD, FACOG Subjective Doing okay this morning, she is experiencing acid reflux. Pain is a 3/10, ble eding has decreased, is going well. Review of Systems Review of Systems: Denies fever, chills, sweats Denies shortness of breath, difficulty breathing, chest pain, palpitations, chest pressure. Denies breast pain. Denies dysuria. Denies headache. Physical Exam Physical Exam: General: Alert, oriented. No acute distress. Cardiac: Regular rate and rhythm, no murmurs/rubs/gallops. Respiratory: Clear to auscultation anterior and posteriorly, no wheezes/rales/rhonchi. No increased work of breathing. Symmetrical chest rise. No respiratory distress. Abdomen: Soft, nontender, nondistended. Bowel sounds present. Uterus: Uterine fundus firm, palpable 1 cm below umbilicus. Lower Extremities: No lower extremity edema or swelling. No deep calf pain. Fareed's negative bilaterally. Results & Data Vital Signs (Past 12 Hours) Vital Signs Temp Pulse Resp BP 01/22/19 23:30 36.5 C 60 18 98/51 L 01/22/19 19:15 36.5 C 65 18 97/58 L PG Care Time/CCT Total # of Minutes Spent Total Time Spent with Patient: Total time spent is greater than 50% in coordination of care (as documented) at patient's floor/unit and/or counseling patient: Resident Activity Tracking Resident Involvement: Resident Care Provided Care Provided: Adult Hospital Medicine
[2019-01-23 07:33] LABS: Hematocrit (blood only) 35.5 % (37-47); Hemoglobin 12.4 g/dL (12.0-16.0); Mean Corpuscular Hemoglobin 34.1 pg (25-34); Mean Corpuscular Hgb Conc 34.9 g/dL (32-36); Mean Corpuscular Volume 97.5 fL (80-100); Mean Platelet Volume 9.7 fL (7.4-10.4); Platelet Count 105 K/uL (130-400); RDW Coefficient of Variation 13.2 % (11.5-14.5); Red Blood Count 3.64 M/uL (4.2-5.4); White Blood Count 6.04 K/uL (4.8-10.8)
[2019-01-23] MEDS: PRENATAL VITAMIN 1 TAB PO SCH (08:24)
[2019-01-23] MEDS: ACETAMINOPHEN 325 MG TAB PO PRN (08:25)
[2019-01-23] MEDS: DOCUSATE SODIUM 100 MG CAP PO SCH (08:25)
[2019-01-23] MEDS ORDERED: FAMOTIDINE 20 MG TAB PO SCH (09:00)
[2019-01-23] MEDS ORDERED: bisacodyL 5 MG TABEC PO SCH (20:00)
== END 2019-01-23 15:15 | disposition home or self-care (01) | DRG 807 ==
LOC: OPB 18:17 → 4S1 18:33 → 4S2 01-22 02:50